=== PATIENT | female | born 1985 | race Caucasian/White ===

== ENCOUNTER 2022-10-30 10:15 | Outpatient (RCR) | payer OTHER, SELFPAY ==
--- NOTE | 2022-08-09 11:21 | PTOPEVAL1 ---
Assessment and note entered by Rochelle Leach DPT Evaluation Information Assessment Status Evaluation Reported Pain Level Pain Score 0: Self Report Additional Pain Score Comments Pt reports occasional urinary incontinence since having children. Reports this spring after being very sick and coughing constantly the frequency increased. States her incontinence will depend on activity and does not happen daily. Urinates less than 10 times a day and none at night. No pain with urination. BM every other day, no pain. Has had pelvic pain with intercourse in the past but not every time, relates the pain to cysts. Pt delievered babies in 2008 and 2012, both vaginal deliveries with a 3rd and 1st degree tears. Had an ectopic with no surgery. Reports no issues with urgency, can hold urine as long as she needs to. Coughing, sneezing, laughing, jumping has caused incontinence. Assessment PT Clinical Summary The patient is presenting to skilled therapy with a diagnosis of pelvic organ prolapse and a progressing history of stress urinary incontinence . She presents with significantly decreased pelvic floor strength and endurance, as well as compensations with contractions which are contributing to her incontinence. She will highly benefit from therapy to address these impairments in order to improve strength and reduce incontinence. Plan of Care Interventions Electrical Stimulation,Hot Pack/Cold Pack,Manual Therapy,Neuro Re-education,Patient/Caregiver Education,Therapeutic Activities,Therapeutic Exercise,Self-Care/Home Management PT Services Indicated Yes Treatment Frequency and 1 time a week for 6 weeks Duration These treatments will address the objective and functional deficits as defined above. The patient will be advanced safely and appropriately in order for the patient to progress towards his/her prior level of function. Additional exercises will be introduced and as well as a comprehensive home exercise program upon discharge, if needed, ?to ensure carryover of functional gains achieved in the clinic. This treatment plan has been reviewed and agreement upon by the patient.
--- NOTE | 2022-10-25 11:36 | PTOPPROG ---
Assessment and note entered by Rochelle Leach DPT Evaluation Information Assessment Status Progress Subjective Information Pt reports she missed last visit due to having the flu and then had difficulty scheduling due to [place] etc. Overall was feeling improvements with therapy when she was able to attend regularly . Thinks she was able to perform pelvic floor contraction with less difficulty. No urine leakage in the last week. No reports of heaviness . Assessment PT Clinical Summary The patient has made good progress in therapy. She reports improvements in sensation and no incontinence in the last week. She demonstrates improved pelvic floor strength and endurance. Due to her progress but continued incontinence at times (like coughing while sick) she will benefit from further therapy to improve strength and decrease incontinence. Plan of Care Interventions Manual Therapy,Neuro Re-education,Patient/ Caregiver Education,Therapeutic Activities, Therapeutic Exercise,Self-Care/Home Management PT Services Indicated Yes Treatment Frequency and 1 time a week for 4 weeks Duration These treatments will address the objective and functional deficits as defined above. The patient will be advanced safely and appropriately in order for the patient to progress towards his/her prior level of function. Additional exercises will be introduced and as well as a comprehensive home exercise program upon discharge, if needed, ?to ensure carryover of functional gains achieved in the clinic. This treatment plan has been reviewed and agreement upon by the patient.
--- NOTE | 2022-11-09 09:05 | PCPTNOTE ---
This treatment is being continued on visit number [id number]. Please see documentation on both accounts to view progress. Completed interventions, outcomes, and problems have been marked as Inactive to facilitate the copying of the Care plan routine for recurring accounts.
== END 2022-11-07 10:49 | disposition home or self-care (01) ==
LOC: ANHPT 10:15
PROVIDERS: Visit Provider Obstetrics & Gynecology
DX: N81.89 Other female genital prolapse (principal)
CPT/HCPCS: 97110; 97112; 97161

== ENCOUNTER 2022-11-22 10:45 | Outpatient (RCR) | payer OTHER, SELFPAY ==
--- NOTE | 2022-11-09 09:06 | PCPTNOTE ---
The treatment documented on this account is a continuation of the treatment documented on visit number [id number]. Please see documentation on both accounts to view progress. The Plan of Care has been transitioned and updated within the new V#. I have addressed and agree with the discipline specific Problems, Interventions, and Goals for the current certification period. Completed interventions, outcomes, and problems have been marked as Inactive to facilitate the copying of the Care plan routine for recurring accounts.
--- NOTE | 2022-11-22 11:17 | PTOPDC ---
Assessment and note entered by Rochelle Leach DPT Evaluation Information Assessment Status Discharge Subjective Information Pt reports things are going well with therapy. States she has had no incontinence in the last month. Still feels like she has difficulty knowing if she is performing the pelvic contraction correctly Reported Pain Level Pain Score 0: Self Report Assessment PT Clinical Summary The patient has made good progress in therapy. She reports no incontinence in the last month and demonstrates improved core and pelvic floor strength and endurance. Due to her progress, discharge is recommended at this time. She has been educated to continue HEP and follow up with MD and/or PT as needed. Plan of Care PT Services Indicated No
== END 2022-11-22 11:45 | disposition home or self-care (01) ==
LOC: ANHPT 10:45
PROVIDERS: Visit Provider Obstetrics & Gynecology
DX: N81.89 Other female genital prolapse (principal)
CPT/HCPCS: 97110; 97112

== ENCOUNTER 2024-11-26 10:41 | Outpatient (CLI) | payer OTHER, SELFPAY | END 2024-11-26 10:42 | disposition home or self-care (01) | LOC: ANHLAB 10:42 | PROVIDERS: Visit Provider Nurse Practitioner Obstetrics & Gynecology | DX: N95.1 Menopausal and female climacteric states (principal) | CPT/HCPCS: 36415; 82306; 84443 ==